=== PATIENT | female | born 1955 | race Caucasian/White ===

== ENCOUNTER 2016-10-24 08:17 | Inpatient (IN) | payer OTHER ==
[~2016-10-24 08:17] MED LIST: ADVAIR 2501 DISK W/D; ADVAIR 25028 BLISTE1 INH; ADVAIR 25028 BLISTE1 PO; AVELOX400 MG PO; BALSALAZIDE DI750 M4 PO; CALCIUM500 M3 PO; CALCIUM500 MG; HYCODAN SYRUP480 ML PO; IMURAN50 M1 PO; LIALDA1.2 GM/TAB PO; NASONEX17 G1; NASONEX17 GM; NO HOME MEDICATION XX; NORCO 5/325 TAB1 TAB PO; PREDNISONE10 M1 PO; PROAIR HFA8.5 GM IH; PROAIR HFA8.5 GM INH; SINGULAIR10 M1 PO; SINGULAIR10 MG; VANCOMYCIN HCL125 M1 PO
[2016-10-24 11:04] LABS: HCT-HEMATOCRIT 35.1 % (34.0-49.0); HGB-HEMOGLOBIN 11.5 gm/dl (12.0-15.5); MCH (MEAN CORPUSCULAR HGB) 30.2 pg (28.0-32.0); MCHC MEAN CORPUSCULAR HGB CONC 32.8 % (32.0-36.0); MCV (MEAN CELL VOLUME) 92.1 fl (82.0-96.0); MEAN PLATELET VOLUME 9.8 cmc (9.4-12.4); NEUTROPHIL-AUTOMATED 5.7 tho/cmm (1.6-8.0); PLATELET COUNT 332 tho/cmm (150-450); RED BLOOD COUNT 3.81 mil/cmm (4.00-5.20); RED CELL DISTRIBUTION WIDTH 13.1 % (12.4-16.4); WHITE BLOOD COUNT 8.9 tho/cmm (4.0-10.0)
[2016-10-24 11:17] LABS: ALB/GLOB RATIO 0.6 (0.8-2.0); ALBUMIN 2.7 g/dl (3.5-5.0); ALKALINE PHOSPHATASE 80 U/L (33-138); ALT/SGPT 17 U/L (12-78); ANION GAP 11 mmol/L (0-20); AST/SGOT 9 U/L (10-40); BILIRUBIN,TOTAL 0.2 mg/dl (0-1.5); BLOOD UREA NITROGEN 13 mg/dl (6-24); CALCIUM 8.6 mg/dl (8.5-10.5); CARBON DIOXIDE-VENOUS 28 mmol/L (22-32); CHLORIDE 105 mmol/l (96-110); CREATININE 0.62 mg/dl (0.50-1.10); GLUCOSE 85 mg/dL (70-110); POTASSIUM 3.6 mmol/L (3.7-5.1); SODIUM 140 mmol/L (135-145); eGFR VALUE FOR BLACK >90 mL/Min
[2016-10-24 11:55] LABS: BAND % 24 % (0-20); BAND ABSOLUTE COUNT 2.1 tho/cmm (0-2.0); EOSINOPHIL % 2 % (0-7)
[2016-10-26 13:12] LABS: ANION GAP 14 mmol/L (0-20); BLOOD UREA NITROGEN 15 mg/dl (6-24); CALCIUM 8.2 mg/dl (8.5-10.5); CARBON DIOXIDE-VENOUS 26 mmol/L (22-32); CHLORIDE 99 mmol/l (96-110); CREATININE 0.94 mg/dl (0.50-1.10); GLUCOSE 288 mg/dL (70-110); SODIUM 135 mmol/L (135-145); eGFR VALUE FOR BLACK 75 mL/Min
[2016-10-26 13:15] LABS: POTASSIUM 4.2 mmol/L (3.7-5.1)
[2016-10-27] MEDS ORDERED: COLESTID1 GM PO (13:39)
[2016-10-27] MEDS ORDERED: PREDNISONE10 M1 PO (13:40)
== END 2016-10-27 17:25 | DRG 387 ==
LOC: 5WE 08:17
PROVIDERS: ADMIT Family Medicine
PROC: 05H633Z Insertion of Infusion Device into Left Subclavian Vein, Percutaneous Approach (ICD-10-PCS; principal; 2016-10-24)
DX: K51.90 Ulcerative colitis, unspecified, without complications (principal); J45.909 Unspecified asthma, uncomplicated; Z85.3 Personal history of malignant neoplasm of breast; Z79.52 Long term (current) use of systemic steroids; R53.83 Other fatigue; R63.4 Abnormal weight loss; Z68.20 Body mass index [BMI] 20.0-20.9, adult; Z88.8 Allergy status to other drugs, medicaments and biological substances; Z92.21 Personal history of antineoplastic chemotherapy; R73.9 Hyperglycemia, unspecified; T38.0X5A Adverse effect of glucocorticoids and synthetic analogues, initial encounter
CPT/HCPCS: C1751; J2920